=== PATIENT | female | born 1955 | race Two or more races ===

== ENCOUNTER 2018-11-16 07:36 | Outpatient (CLI) | payer OTHER | END 2018-11-16 09:19 | disposition home or self-care (01) | LOC: SONOGRAMA 07:36 | DX: E04.2 Nontoxic multinodular goiter (principal) ==

== ENCOUNTER 2023-02-09 09:01 | Outpatient (CLI) | payer OTHER | END 2023-02-09 09:03 | disposition home or self-care (01) | LOC: SONOGRAMA 09:01 | PROVIDERS: ATTEND Pathology Anatomic Pathology & Clinical Pathology | DX: D34 Benign neoplasm of thyroid gland (principal); E04.9 Nontoxic goiter, unspecified ==